=== PATIENT | female | born 1945 | race Caucasian/White ===

== ENCOUNTER 2025-02-23 14:52 | Outpatient (REF) | payer MEDICARE, SELFPAY ==
[2025-02-23 15:31] LABS: Abs Immature Grans 0.03 10^3/uL (0.0-0.06); HCT 43.7 % (36.0-46.0); HGB 14.1 g/dL (11.2-15.7); Immature Grans % 0.4 %; MCH 29.9 pg (27.0-33.0); MCHC 32.3 % (32.0-36.0); MCV 93 fL (80-95); MPV 10.8 fL (8.0-11.0); Platelet Count 227 10^3/uL (130-400); RBC 4.72 10^6/uL (3.93-5.22); RDW 15.0 % (11.7-14.6); RDW-SD 51.2 fL; WBC 8.06 10^3/uL (4.4-10.8)
[2025-02-23 16:05] LABS: Hemoglobin A1C 5.3 % (<5.7)
[2025-02-23 17:27] LABS: ALT 18 U/L (14-59); AST 20 U/L (15-37); Albumin 3.9 g/dL (3.4-5.0); Alkaline Phosphatase 93 U/L (46-116); Anion Gap 10.2 mmol/L (3-11); BUN 19 mg/dL (7-18); Bilirubin, Total 0.4 mg/dL (0.2-1.0); CO2 26.8 mmol/L (21.0-32.0); Calcium 9.0 mg/dL (8.5-10.1); Calculated LDL 128 mg/dL (<100); Chloride 104 mmol/L (98-107); Cholesterol 216 mg/dL (<200); Estimated GFR 51.11 (mL/min/1.73m2); Folate > 20.0 ng/mL (8.6-20.0); Glucose 95 mg/dL (74-106); HDL Cholesterol 68 mg/dL (>or=50); Potassium 4.0 mmol/L (3.5-5.1); Sodium 141 mmol/L (136-145); TSH (W/Ref FT4) 2.34 uIU/mL (0.36-3.74); Total Protein 7.3 g/dL (6.4-8.2); Triglyceride 103 mg/dL (<150)
[2025-02-23 22:55] LABS: Vitamin B12 397 pg/mL (193-986)
[2025-02-24 10:07] LABS: Syphilis Serology (RPR) Negative (Negative)
[2025-02-24 18:39] LABS: Iron 63 ug/dL (50-170); Total Iron Binding Capacity 320 ug/dL (250-450); Transferrin Sat 20 % (15-50)
[2025-02-24 19:46] LABS: Vitamin D 25 Total 49 ng/mL (30-100)
== END 2025-02-23 14:53 | disposition home or self-care (01) ==
LOC: NCHCN 14:52
PROVIDERS: Visit Provider Family Medicine
DX: R41.3 Other amnesia (principal); Z13.1 Encounter for screening for diabetes mellitus
CPT/HCPCS: 80053; 80061; 82306; 82607; 82746; 83036; 83540; 83550; 84443; 85025; 86592

== ENCOUNTER 2025-03-15 07:59 | Outpatient (CLI) | payer MEDICARE, SELFPAY ==
--- NOTE | 2025-03-15 | DI.CT_ITS ---
Exam(s) CT HEAD WO EXAM: CT HEAD WO CLINICAL HISTORY: MEMORY PROBLEM,R41.3. TECHNIQUE: Imaging Protocol: Axial computed tomography images with coronal and sagittal reformatted images were created and reviewed COMPARISON: No exams were available for comparison FINDINGS: Ventricles and Extra axial spaces: Normal in size and morphology for the patient's age. Hemorrhage: None. Cerebral parenchyma: No evidence of acute infarct or mass. Midline shift: None. Brainstem/Cerebellum: Normal. Bones: No skull or facial fractures. Hyperostosis frontalis interna. Visualized Paranasal sinuses:Clear. Mastoids: Clear. Soft Tissues: Unremarkable. ORBITS: Unremarkable. PITUITARY: Not enlarged. IMPRESSION: No acute intracranial process. RADIATION DOSE DELIVERED: 857.5mGy.cm Total DLP DATA REPOSITORY: All CT scans at this facility are submitted to the National Radiology Data Registry (NRDR) Dose Index Registry (DIR) with the [employer] ([employer]). RADIATION OPTIMIZATION: All CT scans at this facility use at least one of these dose optimization techniques: automated exposure control; mA and/or kV adjustment per patient size (includes targeted exams where dose is matched to clinical indication); or iterative reconstruction.
== END 2025-03-15 08:19 ==
PROVIDERS: Visit Provider Family Medicine
DX: R41.3 Other amnesia (principal)
CPT/HCPCS: 70450

== ENCOUNTER 2025-04-05 01:01 | Outpatient (CLI) | payer MEDICARE, SELFPAY ==
--- NOTE | 2025-04-05 | DI.US_ITS ---
Exam(s) US PELVIS TRANSVAGINAL EXAM: US PELVIS TRANSVAGINAL CLINICAL HISTORY: POST MENOPAUSAL BLEEDING N95.0 TECHNIQUE: Transabdominal and transvaginal imaging was performed using standard protocol. COMPARISON: No exams were available for comparison FINDINGS: The transabdominal images are limited by lack of urinary bladder distention. UTERUS: Anteverted. 6.9 x 4.3 x 4.4 cm Endometrium: 12 mm, heterogeneous. Myometrium: 2 fibroids, 1 anterior measuring 2.7 cm. The other or posterior fundal fibroid measures 4.2 cm and shows calcifications. Cervix: There is fluid distending the cervical canal. No focal mass or polyp is visible. OVARIES: Not visualized. CUL-DE-SAC: Free fluid: None. IMPRESSION: 1. Abnormally thickened, heterogeneous endometrium. Biopsy recommended. Uterine fibroids. Fluid within the cervical canal. 2. The ovaries were not visualized. DATA REPOSITORY:
== END 2025-04-05 01:21 ==
PROVIDERS: PCP Family Medicine; Visit Provider Family Medicine
DX: N95.0 Postmenopausal bleeding (principal); R93.89 Abnormal findings on diagnostic imaging of other specified body structures
CPT/HCPCS: 76830; 76856

== ENCOUNTER 2025-04-18 02:28 | Outpatient (CLI) | payer MEDICARE, SELFPAY ==
--- NOTE | 2025-04-18 | DI.US_ITS ---
Exam(s) US CAROTID EXAM: US CAROTID CLINICAL HISTORY: DIZZINESS GIDDINESS R42. TECHNIQUE: Ultrasound carotids performed using grayscale, color-flow, and spectral Doppler imaging. COMPARISON: No exams were available for comparison FINDINGS: RIGHT CAROTID ARTERY: Plaque: Mild calcific plaque is seen in the carotid bulb and proximal ICA. Velocity elevation: None. LEFT CAROTID ARTERY: Plaque: Mild calcific plaque is seen in the carotid bulb and proximal ICA. Velocity elevation: None. VERTEBRAL ARTERIES: Antegrade flow. Measurements: R Bulb: 77.8cm/s PS / 19.8cm/s ED R CCA: 94.4cm/s PS / 21.9cm/s ED R ECA: 104.4cm/s PS / 28.7cm/s ED R ICA Prox: 80.8cm/s PS / 19.6cm/s ED R ICA Mid: 77.2cm/s PS / 17.8cm/s ED R ICA Distal: 50.1cm/s PS /18.1cm/s ED R Vert: 34.8cm/s PS / 0cm/s ED R SVR: 0.9 R DVR: 0.9 L Bulb: 76.2cm/s PS / 22.9cm/s ED L CCA: 102.1cm/s PS / 17.2cm/s ED L ECA: 115.7cm/s PS / 30.7cm/s ED L ICA Prox: 72.4cm/s PS / 16.1cm/s ED L ICA Mid: 80.7cm/s PS / 12.1cm/s ED L ICA Distal: 61.7cm/s PS / 22.9cm/s ED L Vert: 30.1cm/s PS / 13.1cm/s ED L SVR: 0.8 L DVR: 0.7 IMPRESSION: No evidence for hemodynamically significant carotid stenosis. Criteria for Carotid Stenosis: Normal: ICA PSV <125 cm/s no plaque or intimal thickening is visible. <50% stenosis: ICA PSV <125 cm/s and plaque or intimal thickening is visible. 50-69% stenosis: ICA PSV is 125-250 cm/s and plaque is visible. >70% stenosis to near occlusion: ICA PSV >250 cm/s with visible plaque and luminal narrowing. DATA REPOSITORY:
== END 2025-04-18 02:48 ==
LOC: DI 02:28
PROVIDERS: PCP Family Medicine; Visit Provider Family Medicine
DX: R42 Dizziness and giddiness (principal)
CPT/HCPCS: 93880

== ENCOUNTER 2025-06-14 00:43 | Outpatient (CLI) | payer MEDICARE, SELFPAY ==
[2025-06-14 11:39] LABS: Abs Immature Grans 0.02 10^3/uL (0.0-0.06); HCT 49.3 % (36.0-46.0); HGB 16.2 g/dL (11.2-15.7); Immature Grans % 0.3 %; MCH 30.4 pg (27.0-33.0); MCHC 32.9 % (32.0-36.0); MCV 93 fL (80-95); MPV 10.2 fL (8.0-11.0); Platelet Count 232 10^3/uL (130-400); RBC 5.33 10^6/uL (3.93-5.22); RDW 13.6 % (11.7-14.6); RDW-SD 46.8 fL; WBC 7.87 10^3/uL (4.4-10.8)
== END 2025-06-14 00:44 | disposition home or self-care (01) ==
LOC: LBO 00:43
PROVIDERS: PCP Family Medicine; Visit Provider Obstetrics & Gynecology
DX: Z01.818 Encounter for other preprocedural examination (principal)
CPT/HCPCS: 36415; 86850; 86900; 86901; 85025

== ENCOUNTER 2025-06-15 08:51 | Day surgery (SDC) | payer MEDICARE, SELFPAY ==
--- NOTE | 2025-06-14 16:08 | W.ANESPRE ---
General Info Date of Service Date Performed: 06/15/25 Height: 5 ft 3 in Weight: 105.386 kg Body Mass Index (BMI): 41.1 Surgical Procedure: Operation Date: 06/15/25 09:25 Proposed Procedure Side Surgeon p Dilation & Curettage with Hysteroscopy Jacquelyn Drummond DO Meds Allergies and Home Medications Allergies Allergy/AdvReac Type Severity Reaction Status Date / Time ketoprofen (From Orudis) Allergy Unknown Verified 06/15/25 09:31 Home Medication ?Medication ?Instructions ?Recorded atorvastatin 20 mg tablet (Lipitor) 20 mg PO QHS 04/21/25 celecoxib 200 mg capsule (Celebrex) 200 mg PO DAILY 04/21/25 clotrimazole-betamethasone 1 1 applic topical BID 04/21/25 %-0.05 % topical cream donepezil 10 mg tablet 10 mg PO DAILY 04/21/25 metoprolol succinate 100 mg 100 mg PO DAILY 04/21/25 tablet,extended release 24 hr oxybutynin chloride 5 mg tablet 5 mg PO DAILY 04/21/25 tramadol 50 mg tablet 50 mg PO Q6H PRN 04/21/25 triamterene 37.5 1 tab PO DAILY 04/21/25 mg-hydrochlorothiazide 25 mg tablet Current Visit Medications: Current Medications Generic Name Dose Route Start Last Admin Trade Name Freq PRN Reason Stop Dose Admin Ringer's Solution 1,000 mls @ 100 mls/hr 06/15/25 06:00 IV 06/15/25 23:59 INFUSION LUCIA Sodium Chloride 0 ml 06/15/25 06:00 Normal Saline Flush 10 Ml Syr IV 06/15/25 23:59 PRN PRN Sodium Chloride 0 ml 06/15/25 06:00 Normal Saline 10 Ml Vial IJ 06/15/25 23:59 DIRECTED PRN Sterile Water 0 ml 06/15/25 06:00 Water,Injection,Sterile 10 Ml Vial IJ 06/15/25 23:59 DIRECTED PRN PFSH Active Problems Active Problems: Problem Status Onset Code Cervical stenosis (uterine cervix) Acute N88.2 Class 3 severe obesity due to excess calories with body mass index (BMI) of 40.0 to 44.9 in adult Acute E66.813, Z68.41 Uterine leiomyoma Acute D25.9 B12 deficiency Acute E53.8 Atherosclerosis of both carotid arteries Acute I65.23 Memory problem Acute R41.3 Post-menopausal bleeding Acute N95.0 Hyperlipidemia Acute E78.5 Thickened endometrium Acute R93.89 Medical History Medical History (Updated 06/08/25 @ 13:23 by Domingo Preston) HTN (hypertension) Surgical History Surgical History (Updated 06/15/25 @ 09:37 by Darshana Hoffman) History of total knee arthroplasty Tobacco Smoking/Tobacco Use Status: Never Passive smoking exposure: Yes Alcohol Alcohol Intake: current Alcohol intake frequency: holidays/special occasions only Substance Use Substance use: Never Substance use type: does not use Vital Signs and Lab Results Vital Signs Most Recent Vital Signs in EMR: Temp Pulse Resp BP Pulse Ox 36.3 C L 61 16 133/82 96 06/15/25 09:07 06/15/25 09:07 06/15/25 09:07 06/15/25 09:07 06/15/25 09:07 Lab Results Blood Type / Crossmatch: Antibody Screen NEGATIVE 06/14/25 Complete Blood Count: WBC, (4.4-10.8) 7.87 10^3/uL 06/14/25, 11:24 RBC, (3.93-5.22) 5.33 10^6/uL H 06/14/25, 11:24 Hgb, (11.2-15.7) 16.2 g/dL H 06/14/25, 11:24 Hct, (36.0-46.0) 49.3 % H 06/14/25, 11:24 Plt Count, (130-400) 232 10^3/uL 06/14/25, 11:24 Imaging and Studies Imaging and Studies Study information below may be from another EMR and interpreted by another provider. Please see original notes in EMR for more complete details. Carotid Artery Summary:: 04/18/25 RIGHT CAROTID ARTERY: Plaque: Mild calcific plaque is seen in the carotid bulb and proximal ICA. Velocity elevation: None. LEFT CAROTID ARTERY: Plaque: Mild calcific plaque is seen in the carotid bulb and proximal ICA. Velocity elevation: None. VERTEBRAL ARTERIES: Antegrade flow. IMPRESSION: No evidence for hemodynamically significant carotid stenosis. Anesthesia Assessment and Plan Anesthesia History Personal History: No History of Anesthesia Complications Family History: No Family History of Anesthesia Complications Exercise Tolerance Exercise Tolerance: Metabolic Equivalents<4 Pertinent Negatives Pertinent Negatives: No Symptoms of GERD, No Major Cardiovascular Symptoms or Complaints and No Major Pulmonary Symptoms or Complaints Cardiac & Pulmonary Exam Cardiac Exam: Normal S1/S2 Heart Sounds Pulmonary Exam: Clear Bilateral Breath Sounds Implantable Cardiac Device Does patient have a Pacemaker or an ICD?: No Airway Exam Known Difficult Airway: No Mallampati Class: 2 Mouth Opening: Normal (> 3cm) Thyromental Distance: Greater than 3 cm Neck Range of Motion: Full ROM Neck Circumference: Normal Teeth Condition: Normal Dentition ASA Classification ASA Score: ASA 3 Emergency Case?: No NPO Status NPO Status: NPO Clears >2 hours, Solids >8 hours Anesthesia Plan Resuscitation Status: Full Code Anesthesia Technique: General Anesthesia Airway Planned: Natural Airway Monitors Used: Standard Monitors
[2025-06-15] VITALS (13 sets, daily range): BP systolic 93–133; BP diastolic 32–82; PULSE 51–61; RESP 11–25; TEMP 36–36.6; O2SAT 96–100; BMI 41.1
[2025-06-15] MEDS: Lactated Ringers 1,000 ML 100 ML IV (10:00)
--- NOTE | 2025-06-15 10:35 | ENDO_PTH ---
PATIENT: Bairon Burroughs LOC: [facility] U#:[id number] AGE/SX: 79/F ROOM: RE06/15/[address]: Jacquelyn Drummond DO : 1945 BED: DIS: 06/15/2025 SPEC #: [id number] RECD: 06/15/25 13:07 STATUS: DANIEL RE #: [id number] BISMARK: 06/15/25 10:[address]: Jacquelyn Drummond DEPT: Surgical Specimen RECD BY: Eleanor Aguirre Tissues: 1 - ENDOCERVICAL BX/CURRETTE 2 - ENDOMETRIUM BX/CURRETTE Procedures: GROSS AND MICRO LEVEL 4 Comments: [id number]
--- NOTE | 2025-06-15 10:58 | W.PM.OP ---
Operative Note Operative Note PRE-OP DIAGNOSIS: Postmenopausal bleeding, thickened endometrium, cervical stenosis POST-OP DIAGNOSIS: same PROCEDURE: Hysteroscopy, dilation and curettage SURGEON: Jacquelyn Drummond ANESTHESIA TYPE: General:No Airway Refer to Anesthesia Record ESTIMATED BLOOD LOSS: 10 PATHOLOGY: other (1. Endocervix 2. Endometrium) COMPLICATIONS: None Patient was transported to: PACU Indications: Thickened endometrium, postmenopausal bleeding, inability to sample in the office Findings: Cervical stenosis. Mucoid drainage from the endocervix. Scant tissue return from endocervical curettage and endometrial curettage Procedure Description: After full informed consent was obtained, patient was taken the operating suite with an IV running. She is placed in dorsal supine position and general anesthesia administered. She was then placed in the modified dorsolithotomy position in yellowfin stirrups with pneumatic compression stockings for DVT prophylaxis. She was prepped and draped in the usual sterile fashion. A timeout was held. Speculum was inserted into the vaginal vault. Cervix identified and grasped with a single-tooth tenaculum. Cervix was noted to be stenotic. The largest of the lacrimal duct probes were used to dilate the cervical canal. At this point Abram dilators were used to gradually dilate the cervical canal to the point that a 4 mm hysteroscope could be passed without difficulty. On inspection of the endocervix and endometrium, there was somewhat irregular tissue noted with intrauterine synechiae. Digital images were taken. At this point the hysteroscope portion was terminated with a 50 mL normal saline fluid deficit. Fractional dilation was performed with initial curettage of the endocervix, followed by endometrium, both for scant tissue. At this point, the procedure was terminated and tenaculum was removed from the anterior lip of the cervix. Puncture sites were noted to be hemostatic. Speculum was removed and the patient was returned to the dorsal supine position. She awoke from anesthesia without difficulty and was taken to the postanesthesia care unit in stable condition. EBL: 5 mL Fluids: Crystalloid per anesthesia +50 mL of normal saline at hysteroscope Complications: None apparent Pathology: 1. Endocervical curettage 2. Endometrial curettage Date of Procedure: 06/15/25
--- NOTE | 2025-06-15 11:27 | W.ANESPOSTOP ---
Postoperative Evaluation Date, Time and Location Date Performed: 06/15/25 Time Performed: 11:27 Patient Location: PACU Vital Signs Most Recent Imported Vital Signs: Most Recent Vital Signs Temp Pulse Resp BP Pulse Ox 36.4 C L 56 L 11 L 133/44 L 99 06/15/25 11:10 06/15/25 11:11 06/15/25 11:11 06/15/25 11:10 06/15/25 11:11 Pain Score Most Recent Pain Score: Most Recent Pain Score Pain Level 2 06/15/25 11:08 Assessment Mental Status: Awake (Alert & Oriented to Patient Baseline) Airway and Respiratory Function: Patent airway with normal (patient baseline) respiratory exam Cardiovascular Function: Hemodynamically Stable Hydration Status: Adequately Hydrated Nausea & Vomiting: No Nausea or Vomiting Pain: Pain is tolerable per patient Peripheral Nerve Block: Patient did not receive a nerve block
== END 2025-06-15 12:20 | disposition home or self-care (01) ==
PROVIDERS: PCP Family Medicine; Visit Provider Obstetrics & Gynecology
PROC: 0UDB8ZZ Extraction of Endometrium, Via Natural or Artificial Opening Endoscopic (ICD-10-PCS; CPT 58558; principal; 2025-06-15 09:15)
DX: N95.0 Postmenopausal bleeding (principal); R93.89 Abnormal findings on diagnostic imaging of other specified body structures; N88.2 Stricture and stenosis of cervix uteri
CPT/HCPCS: 58558; 88305; J1100; J1596; J2003; J2371; J2405; J2704